=== PATIENT | male | born 1960 | race Caucasian/White ===

== ENCOUNTER 2021-01-14 12:30 | Outpatient (RCR) | payer OTHER, SELFPAY ==
[2020-12-15 12:41] VITALS: BP_SYST 140
--- NOTE | 2020-12-15 14:03 | PTOPEVAL ---
INITIAL PHYSICAL THERAPY EVALUATION and PLAN OF CARE Thank you for referring Delio Askew to [facility] [place][Note 2].? Delio is scheduled to be seen for physical therapy? 2x/week for 4 weeks. Please review, sign, date and return this plan of care LEIGH. I agree with and certify that the following plan of care is medically necessary. Referring Physician Date Admitting Provider: Attending Provider: Kendra Sims, PA Referring Provider: *PT Outpatient Evaluation Start: 12/15/20 12:41 Freq: Status: Active Protocol: Document 12/15/20 12:41 FAVIOLA (Rec: 12/15/20 14:02 FAVIOLA [id number]) Therapy Assessment Status Assessment Status Assessment Status Evaluation Outpatient Past Medical History Past Medical History Source of Past Medical History Patient Musculoskeletal History Hx Arthritis Yes: generalized Hx Fractures Yes: L wrist ORIF Hx Other Musculoskeletal Disorders Yes: R long head biceps rupture Evaluation Information Problem Diagnosis pain in left shoulder Onset 2017 Additional Evaluation Detail R shoulder - Doc lesion - ruptured long head tendon of biceps Subjective Information Slipped on frame of tractor Query Text:As Reported By Patient/ trailer - reached up with L Family hand - whole weight of body was being held by L UE Decreased ability to work due to L shoulder pain since injury Limited now - 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 Difficulty with sleeping - unable to get comfortable. Mornings - less pain - worse as day goes on. 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 Home Meds Must Be Re-entered With Each Visit.
--- NOTE | 2020-12-24 11:57 | PCPTNOTE ---
Patient reports he cannot make it to appointment because his truck broke down and he is waiting for a tow truck.
[2021-01-14 14:45] VITALS: BP_SYST 140
--- NOTE | 2021-01-14 16:37 | PTOPEVAL ---
PHYSICAL THERAPY DISCHARGE SUMMARY Thank you for referring Delio Askew to [facility].? Delio was seen x 7 visits in PT. Mild gains were made - pain levels were still elevated, decreased L RTC function, and decreased function use of L UE at shoulder or overhead levels. Delio stated that he did his HEP, but he needed constant cueing to perform the exercises correctly in the clinic. He is ready for d/c from PT to HEP. I agree with Delio's discharge from PT. Referring Physician Date Admitting Provider: Attending Provider: Kendra Sims, PA Referring Provider: Therapy Assessment Status Assessment Status Assessment Status Discharge Evaluation Information Problem Diagnosis pain in left shoulder Subjective Information Delio reports that his left Query Text:As Reported By Patient/ shoulder is about the same. Family He will have some increase in discomfort following PT. Sleeping has gotten a little bit better. Does HEP once a day. Is taking out the trash now, etc. using L UE. Pain Assessment Pain Scale Pain Scale Used Numeric (1 - 10) Self Report Pain Assessment Left Shoulder(s) Reported Pain Level 7 Lowest Pain Intensity 7 Greatest Pain Intensity 9 Upper Extremity Range of Motion Scapular/ Shoulder Range of Motion Left Shoulder Flexion - Active 90 Shoulder Flexion - Passive 147 Shoulder Extension - Active 55 Shoulder Abduction - Active 80 Shoulder Abduction - Passive 140 Shoulder Medial Rotation - Active 85 Shoulder Medial Rotation - Active L side of L1 Query Text:Reach Behind the Back Shoulder Lateral Rotation - Active 85 Shoulder Lateral Rotation - Active back of head Query Text:Reach Behind the Head Scapular/Shoulder Range of Motion ER in neutral - 74 Comments Upper Extremity Muscle Strength Testing Scapular/Shoulder Left Shoulder Flexion Strength 3- Fair - Shoulder Extension Strength 5 Normal Shoulder Abduction Strength 3- Fair - Shoulder Medial Rotation Strength 4+ Good + Shoulder Lateral Rotation Strength 3 Fair Special Tests-Upper Extremity Shoulder Special Tests Empty Can (supraspinatus) Test Positive Left Drop Arm Test Positive Left Infraspinatus Test Positive Left Lift Off Test Positive Left General Exercise General Exercises Side Left Exercise Location shoulder Exercise Type Active,Active/Assistive, Stretching Exercise Description Reviewed HEP Query Text:Record Sets, Reps, -Standing isometric flex, ext, Resistance, and Position abd, IR, ER 10 reps ea with 5
== END 2021-02-03 16:06 | disposition home or self-care (01) ==
LOC: ANHHIPT 12:30
PROVIDERS: PCP Physician Assistant; Visit Provider Physician Assistant
DX: M25.512 Pain in left shoulder (principal)
CPT/HCPCS: 97014; 97110; 97140; 97161; G0283

== ENCOUNTER 2021-03-01 09:27 | Outpatient (CLI) | payer OTHER, SELFPAY ==
--- NOTE | 2021-03-01 11:00 | NEURO_ITS ---
Impression: # Complains of numbness of hands. # Bilateral Carpal Tunnel Syndrome. # Bilateral ulnar neuropathy across the elbows. # Normal needle/EMG exam. Nerve Conduction Studies Anti Sensory Summary Table Stim Site NR Peak (ms) P-T Amp (?V) Site1 Site2 Delta-P (ms) Dist (cm) Devon (m/s) Left Median Anti Sensory (2-3nd Digit) Wrist 4.0 11.0 Wrist 2-3nd Digit 4.0 14.0 35 Wrist 3.9 20.7 Wrist 2-3nd Digit 4.0 14.0 35 Right Median Anti Sensory (2-3nd Digit) Wrist 3.7 18.3 Wrist 2-3nd Digit 3.7 14.0 38 Wrist 3.6 43.8 Wrist 2-3nd Digit 3.7 14.0 38 Left Radial Anti Sensory (Base 1st Digit) Wrist 2.3 18.3 Wrist Base 1st Digit 2.3 0.0 Right Radial Anti Sensory (Base 1st Digit) Wrist 2.4 15.7 Wrist Base 1st Digit 2.4 0.0 Left Ulnar Anti Sensory (5th Digit) Wrist 2.8 33.6 Wrist 5th Digit 2.8 14.0 50 Right Ulnar Anti Sensory (5th Digit) Wrist 2.9 27.0 Wrist 5th Digit 2.9 14.0 48 Motor Summary Table Stim Site NR Onset (ms) O-P Amp (mV) Site1 Site2 Delta-0 (ms) Dist (cm) Devon (m/s) Left Median Motor (Abd Poll Brev) Wrist 4.0 0.2 Elbow Wrist 5.6 32.0 57 Elbow 9.6 1.0 Right Median Motor (Abd Poll Brev) Wrist 4.0 0.9 Elbow Wrist 5.8 30.0 52 Elbow 9.8 1.8 Left Ulnar Motor (Abd Dig Minimi) Wrist 2.7 7.1 A Elbow Wrist 6.1 31.0 51 A Elbow 8.8 4.3 B Elbow Wrist 4.3 25.0 58 B Elbow 7.0 2.0 Right Ulnar Motor (Abd Dig Minimi) Wrist 2.4 6.9 A Elbow Wrist 6.2 30.0 48 A Elbow 8.6 4.3 B Elbow Wrist 4.1 23.0 56 B Elbow 6.5 4.3 F Wave Studies NR F-Lat (ms) L-R F-Lat (ms) Left Median (Mrkrs) (Abd Poll Brev) 31.43 1.18 Right Median (Mrkrs) (Abd Poll Brev) 32.61 1.18 Left Ulnar (Mrkrs) (Abd Dig Min) 32.73 0.31 Right Ulnar (Mrkrs) (Abd Dig Min) 32.42 0.31 EMG Side Muscle Nerve Root Ins Act Fibs Amp Dur Recrt Comment Right 1stDorInt Ulnar C8-T1 Nml Nml Nml Nml Nml Right Ext Indicis Radial (Post Int) C7-8 Nml Nml Nml Nml Nml Right Ext Digitorum Radial (Post Int) C7-8 Nml Nml Nml Nml Nml Right BrachioRad Radial C5-6 Nml Nml Nml Nml Nml Right PronatorTeres Median C6-7 Nml Nml Nml Nml Nml Right Abd Poll Brev Median C8-T1 Nml Nml Nml Nml Nml Left 1stDorInt Ulnar C8-T1 Nml Nml Nml Nml Nml Left Ext Indicis Radial (Post Int) C7-8 Nml Nml Nml Nml Nml Left Ext Digitorum Radial (Post Int) C7-8 Nml Nml Nml Nml Nml Left BrachioRad Radial C5-6 Nml Nml Nml Nml Nml Left PronatorTeres Median C6-7 Nml Nml Nml Nml Nml Left Abd Poll Brev Median C8-T1 Nml Nml Nml Nml Nml MTDD
== END 2021-03-01 09:28 | disposition home or self-care (01) ==
LOC: ANHNEURO 09:28
PROVIDERS: PCP Physician Assistant; Visit Provider Physician Assistant
DX: G56.03 Carpal tunnel syndrome, bilateral upper limbs (principal); G56.23 Lesion of ulnar nerve, bilateral upper limbs
CPT/HCPCS: 95886; 95911